=== PATIENT | male | born 1985 | race Caucasian/White ===

== ENCOUNTER 2020-11-13 22:21 | Inpatient (IN) ==
[2020-11-13] MEDS ORDERED: cefTRIAXone 1,000 MG in SODIUM CHLORIDE 0.9% 100 ML IV STA (23:17)
[2020-11-13] MEDS ORDERED: AZITHROMYCIN INJ 500 MG in SODIUM CHLORIDE 0.9% 250 ML IV STA (23:17)
[2020-11-13 23:21] LABS: Basophils % 0.2 % (0.0-0.8); Hematocrit 49.7 VOL% (42.0-52.0); Hemoglobin 17.3 GM/DL (14.0-18.0); Immature Granulocytes % 1.1 %; Immature Granulocytes Absolute 0.11 #; Lymphocytes % 9.4 % (21.2-54.2); Mean Corpuscular HGB Conc 34.8 GM/DL (32-36); Mean Corpuscular Volume 83.8 FL (87-102); Mean Platelet Volume 10.8 FL (9.6-12.0); Monocytes % 4.8 % (1.7-12.7); Neutrophils % 84.5 % (38.7-73.9); Platelet Count 193 T/CUMM (130-400); Red Blood Count 5.93 MC/CUMM (3.8-5.5); Red Cell Distribution Width 12.6 % (9.3-17.3); White Blood Count 10.4 T/CUMM (4-12)
[2020-11-13 23:44] LABS: Albumin 3.7 G/DL (3.4-5.0); Calcium 9.6 MG/DL (8.5-10.1); Osmolality,Calculated 284.7 MOS/KG (273-304); Potassium 4.1 MMOL/L (3.5-5.1); Total Protein 7.7 G/DL (6.4-8.2)
[2020-11-13 23:46] LABS: Ferritin 676.2 ng/ml (26-388)
[2020-11-14] MEDS ORDERED: SODIUM CHLORIDE 0.9% 1,000 ML IV STA (01:26)
[2020-11-14] MEDS ORDERED: SODIUM CHLORIDE 0.9% 500 ML IV STA (02:08)
[2020-11-14] MEDS ORDERED: MELATONIN 3 MG TABLET PO PRN (02:10)
[2020-11-14] MEDS ORDERED: DEXTROSE 50% 25 GM/50 ML VIAL IV PRN ×2 (02:10→12:55)
[2020-11-14] MEDS ORDERED: GLUCAGON 1 MG VIAL IM PRN ×2 (02:10→12:55)
[2020-11-14] MEDS ORDERED: hydrALAZINE 20 MG/1 ML VIAL IV PRN (02:10)
[2020-11-14] MEDS ORDERED: ACETAMINOPHEN 325 MG TABLET PO PRN (02:10)
[2020-11-14] MEDS ORDERED: ONDANSETRON 4 MG/2 ML VIAL IV PRN (02:10)
[2020-11-14] MEDS ORDERED: CALCIUM CARBONATE CHEW 500 MG TABLET PO PRN (02:10)
[2020-11-14] MEDS ORDERED: DEXAMETHASONE 4 MG/1 ML VIAL IV STA (02:11)
[2020-11-14] MEDS: SODIUM CHLORIDE 0.9% 1,000 ML IV SCH ×2 (07:47→11:00)
[2020-11-14] MEDS ORDERED: REMDESIVIR 200 MG in SODIUM CHLORIDE 0.9% 210 ML IV ONE (09:00)
[2020-11-14] MEDS: ASCORBIC ACID 500 MG TABLET PO SCH ×2 (10:08→20:25)
[2020-11-14] MEDS: FAMOTIDINE 20 MG TABLET PO SCH ×2 (10:08→20:25)
[2020-11-14] MEDS: DEXAMETHASONE 4 MG/1 ML VIAL IV SCH (10:09)
[2020-11-14] MEDS: CHOLECALCIFEROL 1,000 UNIT TABLET PO SCH (10:09)
[2020-11-14] MEDS: ZINC GLUCONATE 50 MG TABLET PO SCH (10:09)
[2020-11-14] MEDS: CETIRIZINE 10 MG TABLET PO SCH (10:09)
[2020-11-14] MEDS: ENOXAPARIN 40 MG/0.4 ML SYRINGE SUBCUT SCH (10:09)
[2020-11-14] MEDS: INSULIN REGULAR 100 UNIT/ML SUBCUT SCH ×4 (11:00→22:25)
[2020-11-14] MEDS: LACTATED RINGERS 1,000 ML IV SCH ×3 (12:04→22:25)
[2020-11-14] MEDS: cefTRIAXone 2,000 MG in SODIUM CHLORIDE 0.9% 100 ML IV SCH (17:31)
[2020-11-15 06:32] LABS: Albumin 2.9 G/DL (3.4-5.0); Bilirubin,Total 1.4 MG/DL (0.20-1.00); Calcium 8.8 MG/DL (8.5-10.1); Ferritin 699.7 ng/ml (26-388); Osmolality,Calculated 286.7 MOS/KG (273-304); Potassium 4.1 MMOL/L (3.5-5.1); Total Protein 7.1 G/DL (6.4-8.2)
[2020-11-15] MEDS: INSULIN REGULAR 100 UNIT/ML SUBCUT SCH ×4 (10:00→21:15)
[2020-11-15] MEDS: ZINC GLUCONATE 50 MG TABLET PO SCH (10:01)
[2020-11-15] MEDS: ENOXAPARIN 40 MG/0.4 ML SYRINGE SUBCUT SCH (10:01)
[2020-11-15] MEDS: FAMOTIDINE 20 MG TABLET PO SCH ×2 (10:01→21:15)
[2020-11-15] MEDS: DEXAMETHASONE 4 MG/1 ML VIAL IV SCH (10:01)
[2020-11-15] MEDS: ASCORBIC ACID 500 MG TABLET PO SCH ×2 (10:02→21:15)
[2020-11-15] MEDS: AZITHROMYCIN 250 MG TABLET PO SCH (10:02)
[2020-11-15] MEDS: CETIRIZINE 10 MG TABLET PO SCH (10:02)
[2020-11-15] MEDS: LACTATED RINGERS 1,000 ML IV SCH ×2 (10:21→21:15)
[2020-11-15] MEDS: CHOLECALCIFEROL 1,000 UNIT TABLET PO SCH (10:21)
[2020-11-15] MEDS: REMDESIVIR 100 MG in SODIUM CHLORIDE 0.9% 100 ML IV SCH (10:22)
[2020-11-15] MEDS: cefTRIAXone 2,000 MG in SODIUM CHLORIDE 0.9% 100 ML IV SCH (15:19)
[2020-11-16] MEDS: LACTATED RINGERS 1,000 ML IV SCH (05:50)
[2020-11-16] MEDS: AZITHROMYCIN 250 MG TABLET PO SCH (08:39)
[2020-11-16] MEDS: ASCORBIC ACID 500 MG TABLET PO SCH (08:39)
[2020-11-16] MEDS: FAMOTIDINE 20 MG TABLET PO SCH (08:40)
[2020-11-16] MEDS: CETIRIZINE 10 MG TABLET PO SCH (08:40)
[2020-11-16] MEDS: CHOLECALCIFEROL 1,000 UNIT TABLET PO SCH (08:40)
[2020-11-16] MEDS: INSULIN REGULAR 100 UNIT/ML SUBCUT SCH ×3 (08:41→16:23)
[2020-11-16] MEDS: ENOXAPARIN 40 MG/0.4 ML SYRINGE SUBCUT SCH (08:41)
[2020-11-16] MEDS: DEXAMETHASONE 4 MG/1 ML VIAL IV SCH (08:42)
[2020-11-16] MEDS: ZINC GLUCONATE 50 MG TABLET PO SCH (08:42)
[2020-11-16] MEDS: REMDESIVIR 100 MG in SODIUM CHLORIDE 0.9% 100 ML IV SCH (12:29)
[2020-11-16] MEDS: cefTRIAXone 2,000 MG in SODIUM CHLORIDE 0.9% 100 ML IV SCH (16:09)
[2020-11-16 16:43] VITALS: BP 120/78
== END 2020-11-16 16:25 | disposition home or self-care (01) | DRG 177 ==
LOC: N.ED 22:21 → N.EDINP 11-14 02:11 → SUATTDRO 11-14 02:11 → N.EDINP 11-14 04:00 → N.2E 11-14 04:27
PROVIDERS: ADMIT Internal Medicine; ATTEND Internal Medicine